=== PATIENT | female | born 1995 ===

== ENCOUNTER 2017-06-27 12:59 | Emergency (ER) | payer MEDICAID ==
[2017-06-27 13:40] VITALS: BMI 33.4
--- NOTE | 2017-06-27 15:23 | US ---
Indication: No movement for several days. No care for 6 weeks. OB limited/biophysical profile Comparison: None available. Technique: Real-time ultrasound was performed through the pelvis. Findings: There is a single living fetus in cephalic presentation. Amniotic fluid volume is within normal limits. Anterior placenta. The placenta is not previa. There are no adnexal masses or cysts evident. Cervix length measures approximately 3.4 cm. Measurements and calculations: Fetus has a composite sonographic age of 31 weeks 2 days. This calculation is based on the biparietal diameter, head circumference, abdominal circumference, and femur length. Estimated heart rate 161.1 beats per min. Biophysical profile: movements 2/2 breathing 2/2 tone 2/2 Amniotic fluid 2/2 Total score impression: 01/04 Impression: Single living fetus with a composite sonographic age of 31 weeks 2 days. Estimated heart rate 161.1 beats per min. Biophysical profile of 8 out of 8. The study was performed for the emergent evaluation of no movement, and the whole anatomic survey of the fetus was not performed.
[2017-06-27 19:42] VITALS: BP 97/45; PULSE 81
--- NOTE | 2017-06-27 20:22 | OBHP ---
Datetime: 06/27/2017 13:38 IP Adm Impression: , intrauterine ; No Active Labor IP Admit Plan: Observation/Evaluation; Discharge home Admit Comment, IP Provider: 21 y.o. , LMP unsure, ARTIE 08/24/17, EGA 31w 5d (per patient by sono at approx 5 months) c/o no movement x "a few days". Patient states to be concerned about well-being as she has had no assessment for approximately 6 weeks. Moved from [place] then; h as not been able to get an appointment in a local clinic - insurance issues. Once EFM was placed, kym mojica states she felt the baby move; it has robby moving more regularly since. Denies LOF, VB, Ctx. 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 Denies STI, abnormal Pap. PMH: denies PSH: denies NKDA Meds: PNV Soc Hx: denies tobacco, illicit drug or EtOH use. With FOB x 2 years; living together x 6 weeks. U nemployed. Fam Hx: Mother when patient "very small" - raised by a mternal aunt. Knows nothing of her father. No significant family medical history P.E.: as above. Mildy obese, in NAD. Awake, alert, oriented to time, person and place. Accompanie d by FOB who does most of the talking;serving also as oil well service operator to clarify information, as needed. Assessment: 21 y.o. P0, 31w 5d, no movement, insufficient care - as above. FM has improved. Category 1 tracing. Patient had limited ultrasound with BPP: EGA 31w 2d, cephalic; anteri or placenta. Amnionic fluid -"within normal limits; BPS 8/8. It was impressed upon patient, and FOB, the importance of obtaining appointment as soon as possible. NB: patient insists she had GC T performed; "it was normal". Recommendation given for [facility], [facility] and [facility] clinics. Kym mojica is clinically stable. Plan: 1) Discharge 2) Reviewed S/S PTL Pelvic Type - PN: Not Done Extremities - PN: Normal Abdomen - PN: Normal Back - PN: Normal Breast - PN: Not Done Lungs - PN: Normal Heart - PN: Normal Thyroid - PN: Not Done Neurologic - PN: Normal HEENT - PN: Normal General - PN: Normal FHR - Baseline A Provider: 150 Contraction Comments Provider: none Comments, ACOG Physical Exam: Abdomen: Obese. Gravid. Fundal height 31 cm All other systems reviewed and are negative Gestation - Est Wks by US: 31w 5d IP Hx Assessment: Insufficient care EGA AdmitDate IP: 31.5 Vital Signs Provider: Reviewed IP Chief Complaint: Decreased movement NICHD Accel Fetus A IP Provider: [id number] FHR Category Provider Fetus A: Category I NICHD Decel Fetus A IP Provider: None Dilatation, Provider: deferred Genitourinary Exam: Not Done DTRs - PN: Not Done
== END 2017-06-27 15:35 | disposition home or self-care (01) ==
LOC: C.EROB 12:59
DX: O36.8130 Decreased fetal movements, third trimester, not applicable or unspecified (principal); Z3A.31 31 weeks gestation of pregnancy